=== PATIENT | male | born 1980 ===

== ENCOUNTER 2023-03-12 20:53 | Emergency (ER) | payer OTHER ==
[~2023-03-12] VITALS: Ht 175 cm; Wt 126.0 kg
[2023-03-12 21:00] VITALS: BP 148/98
[2023-03-12] MEDS ORDERED: LIDOCAINE 1% INJ 20 ML VIAL ONE (21:05)
[2023-03-12] MEDS ORDERED: BUPIVACAINE 0.5% 30 ML (SENSORCAINE) VIAL ONE (21:25)
--- NOTE | 2023-03-12 21:38 | ED Lower Extremity ---
General Chief Complaint: Laceration Stated Complaint: RIGHT LEG/KNEE LAC Nursing Triage Note: Pt presents with c/o laceration to medial aspect of R upper leg, just above the knee. Pt states he was using a circular sharmila and dropped it, the sharmila struck his leg. Pt tetanus shot was approx 1 year ago. Source: patient Exam Limitations: no limitations History of Present Illness Date Seen by Provider: Mar 12, 2023 Time Seen by Provider: 21:15 Initial Comments 42-year-old male presents for right thigh laceration. He dropped a sharmila on it causing a laceration. His tetanus shot was 1 year ago. No other injuries. All other systems reviewed and negative except documented per HPI. Voice recognition software was used to help create this chart Allergies and Home Medications Patient Home Medication List Home Medication List Reviewed: Yes Review of Systems Constitutional: see HPI Past Egdmvkd-Hjnxek-Flntby Hx Patient Social History Tobacco Use?: No Use of E-Cig and/or Vaping dev: No Substance use?: No Alcohol Use?: No Immunizations Up To Date Influenza Vaccine Up-to-Date: Yes; Up-to-Date Physical Exam Vital Signs Vital Signs - First Documented 03/12/23 21:00 Temp 37.1 Pulse 80 Resp 18 B/P (MAP) 148/98 (115) Capillary Refill : Less Than 3 Seconds Height, Weight, BMI Height: '" Weight: lbs. oz. kg; 41.00 BMI Method: General Appearance: WD/WN, no apparent distress Cardiovascular: regular rate, rhythm, no murmur Respiratory: chest non-tender, normal breath sounds, no respiratory distress Skin: other (5 cm laceration right medial thigh. Neurovascular and sensory intact. Hemostatic.) Procedures/Interventions Wound Location: Lower Extremities Wound's Depth, Shape: sub Q Anesthesia: 1% Lidocaine (Subsequent bupivacaine) Suture: Prolene Suture Size: 4-0 Number of Sutures: 8 Layer Closure?: 2 Number Deep Layer Sutures: 1 Sterile Dressing Applied?: Yes Progress/Results/Core Measures Results/Orders My Orders Orders - MEHNAZ LEW DO Lidocaine 1% Inj 20 Ml (Xylocaine 1% Inj (03/12/23 21:05) Bupivacaine 0.5% Injection (Sensorcaine (03/12/23 21:25) Medications Given in ED Current Medications Medications Dose Ordered Sig/Allen Route Start Time Stop Time Status Last Admin Dose Admin Lidocaine HCl 20 ml STK-MED ONCE .ROUTE 03/12/23 21:05 03/12/23 21:07 DC 03/12/23 21:21 20 ML Vital Signs/I&O 03/12/23 21:00 Temp 37.1 Pulse 80 Resp 18 B/P (MAP) 148/98 (115) Blood Pressure Mean: 115 Departure Communication (Admissions) Patient is hemodynamically stable. Laceration repaired locally without complication. Neurovascular and sensory intact. Impression Primary Impression: Laceration of right thigh Qualified Codes: S71.111A - Laceration without foreign body, right thigh, initial encounter Disposition: HOME, SELF-CARE Condition: Stable Departure-Patient Inst. Referrals: NO,LOCAL PHYSICIAN (PCP/Family) Primary Care Physician Patient Instructions: Laceration Repair With Stitches (DC) Add. Discharge Instructions: Have the stitches removed in 10 to 14 days. Keep the area clean. Shower as normal but do not submerge in lakes pools or hot tubs. All discharge instructions reviewed with patient and/or family. Voiced understanding. MEHNAZ LEW DO Mar 12, 2023 21:38
== END 2023-03-12 21:48 | disposition home or self-care (01) ==
LOC: ER 20:57
DX: S71.111A Laceration without foreign body, right thigh, initial encounter (principal); W20.8XXA Other cause of strike by thrown, projected or falling object, initial encounter
CPT/HCPCS: 12002